=== PATIENT | female | born 1990 | race Caucasian/White ===

== ENCOUNTER 2017-03-15 11:29 | Emergency (ER) | payer OTHER ==
[~2017-03-15] VITALS: Ht 170.2 cm; Wt 79.0 kg
[2017-03-15 11:35] VITALS: Ht 170.2 cm; Wt 79.0 kg
--- NOTE | 2017-03-15 12:56 | RADRPT ---
PROCEDURE: US OB. CLINICAL INDICATION: Abdominal pain TECHNIQUE: Multiple sonographic images of the pelvis were obtained. Transabdominal imaging only w as performed. The images were reviewed on a PACS workstation. COMPARISON: No prior studies are available for comparison. FINDINGS: There is a single live intrauterine gestation. Cardiac activity is present with 148 beats per minut e. position is breech. The cervix is closed with a length of 3.9 cm. Measurements were made in order to determine age. The results are as follows: BPD = 4.27 cm HC = 15.90 cm AC = 13.33 cm FL = 2.59 cm. Estimated gestational age of approximately 18 weeks 4 days. The estimated date of delivery is 08/12/2017. The EFW = 239 g, 45 %ile. The placenta is anterior. There is no evidence for an abruption or placenta previa. There are no adnexal masses. The MVP measures 4.0 cm. IMPRESSION: 1. Single live intrauterine gestation of approximately 18 weeks 4 days, by ultrasound criteria. 2. The estimated date of delivery is 08/12/2017. 3. The estimated weight is 239 g, 45 %ile. 4. Breech presentation. RPTAT: HH .Jackie Devine MD, Date Time Electronically viewed and signed by .Jackie Devine MD, on 03/15/2017 12:56 .G/
[2017-03-15] MEDS ORDERED: ACET500C5 PO (13:08)
--- NOTE | 2017-03-15 14:37 | ERD ---
ER Documentation Chief Complaint Date/Time DATE: 03/15/17 TIME: 14:25 Chief Complaint BIB MOTHER C/O SHARP ABDOMINAL PAIN SINCE YESTERDAY. DENIES VAG BLEED HPI 26-year-old female who is approximately 18 weeks is complaining of intermittent abdominal pain since last night. Patient reports pain is sharp root on the left or right pelvic region, lasting about 2-3 seconds each. The pain has since resolved, the last episodes were about 5 AM this morning. Patient has history of irregular bowel movements. She thinks that this might be gas pain. However, patient mother seems to be extremely concerned, brought her here to be checked. Patient is , BRENDAN 08/13/2017. Denies fever or chills. Denies nausea or, vomiting, or diarrhea. Denies vaginal bleeding. Denies dysuria. ROS All systems reviewed and are negative except as per history of present illness. Medications Home Meds Active Scripts Acetaminophen* (Tylophen*) 500 Mg Capsule, 1 CAP PO Q6H Y for PAIN AND OR ELEVATED TEMP, #20 CAP Prov:JURGEN ROWLAND EDUCATION ADMINISTRATOR 03/15/17 Allergies Allergies: Coded Allergies: No Known Allergy (Unverified , 03/15/17) PMhx/Soc Medical and Surgical Hx: pt denies Medical Hx, pt denies Surgical Hx Hx Alcohol Use: No Hx Substance Use: No Hx Tobacco Use: No Smoking Status: Never smoker Physical Exam Vitals Vital Signs Date Time Temp Pulse Resp B/P Pulse Ox O2 Delivery O2 Flow Rate FiO2 03/15/17 11:35 98.1 94 20 131/84 98 Physical Exam General: Well-developed, well-nourished, conscious and coherent, in no distress Skin: Warm and dry without rash, good texture and turgor Head: Normocephalic without evidence of trauma Eyes: Sclera and conjunctivae normal; pupils equal, round, and reactive to light; extraocular movements are intact Ears: Canals are patent. Tympanic membranes are clear Nose/Face: Without rhinorrhea Mouth/throat: Mucous membranes are moist. Posterior pharynx clear without erythema or exudates Neck: Supple without meningismus or adenopathy. Carotids are equal. Trachea midline. No bruits or JVD Chest: Normal AP diameter. Good expansion without retractions. Nontender. Lungs are clear to auscultate bilaterally with good tidal volume Heart: Regular rate and rhythm. No murmur, rub, or gallops heard Abdomen: Soft and nontender without masses, guarding, or rebound. Bowel sounds are active. No hepatosplenomegaly Back: Without spinal or CVA tenderness Pelvis: Nontender to palpation and stable to compression Extremities: Full range of motion. Good strength bilaterally. No clubbing, cyanosis, or edema. Peripheral pulses are intact. Sensation intact Neuro: Alert and oriented 4, GCS 15. Cranial nerves grossly intact. Motor and sensory exams nonfocal. Moves all extremities. Speech clear. Gait normal Results 24 hrs PROCEDURE: US OB. CLINICAL INDICATION: Abdominal pain TECHNIQUE: Multiple sonographic images of the pelvis were obtained. Transabdominal imaging only was performed. The images were reviewed on a PACS workstation. COMPARISON: No prior studies are available for comparison. FINDINGS: There is a single live intrauterine gestation. Cardiac activity is present with 148 beats per minute. position is breech. The cervix is closed with a length of 3.9 cm. Measurements were made in order to determine age. The results are as follows: BPD = 4.27 cm HC = 15.90 cm AC = 13.33 cm FL = 2.59 cm. Estimated gestational age of approximately 18 weeks 4 days. The estimated date of delivery is 08/12/2017. The EFW = 239 g, 45 %ile. The placenta is anterior. There is no evidence for an abruption or placenta previa. There are no adnexal masses. The MVP measures 4.0 cm. IMPRESSION: 1. Single live intrauterine gestation of approximately 18 weeks 4 days, by ultrasound criteria. 2. The estimated date of delivery is 08/12/2017. 3. The estimated weight is 239 g, 45 %ile. 4. Breech presentation. RPTAT: HH .Jackie Devine MD, Date Time Electronically viewed and signed by .Jackie Devine MD, MD on 03/15/2017 12 :56 .G/ CC: JURGEN ROWLAND EDUCATION ADMINISTRATOR Procedures/MDM Well-appearing 26-year-old female presents to ED with intermittent pelvic pain since last night. The pain has since resolved. As above suspect this may be round ligament pain. However, to alleviate patient's mother's concerns, OB ultrasound was obtained. OB ultrasound showed normal intrauterine with heart tones 148 bpm. I doubt threatened , heterotopic , urinary rupture, placenta previa, or placenta abruptio. Patient appears well, stable for discharge and outpatient management. Medical decision making shared with patient and family. Education provided to patient and family. Patient and family expressed understanding of the plan. Medications on discharge: Tylenol. Follow-up: Primary care provider in 2-3 days or return to ED if worse. Departure Diagnosis: Primary Impression: Pelvic pain affecting in second trimester, antepartum Condition: Good Patient Instructions: Pelvic Pain In : Unclear (2-3 Trimester) Additional Instructions: Call your primary care doctor TOMORROW for an appointment during the next 2-3 days.See the doctor sooner or return here if your condition worsens before your appointment time. JURGEN ROWLAND NP Mar 15, 2017 14:35
== END 2017-03-15 14:04 | disposition home or self-care (01) ==
LOC: FTE 11:29
DX: O26.892 Other specified pregnancy related conditions, second trimester (principal); R10.2 Pelvic and perineal pain; Z3A.18 18 weeks gestation of pregnancy
CPT/HCPCS: 76805